=== PATIENT | female | born 1985 | race Caucasian/White ===

== ENCOUNTER 2024-09-22 12:41 | Emergency (ER) | payer OTHER, SELFPAY ==
[2024-09-22 12:42] VITALS: BP 161/95; PULSE 121; RESP 18; TEMP 36.4; O2SAT 100; BMI 44.6
[2024-09-22 16:42] VITALS: BP 148/99; PULSE 98; RESP 18; O2SAT 95
--- NOTE | 2024-09-22 17:06 | EX.ED.VIS.EY ---
HPI History of Present Illness Chief Complaint: Eye Problem Informant: patient Narrative Narrative: Patient is a 39-year-old female who is 2 days postop from elective umbilical hernia repair performed by Dr. Kapoor at [facility]. She had yesterday she started feel little flushed and itchy and it came back today. Today she notes she had bilateral eye redness and she feels that her vision is a little blurry and hard to focus. She does note she did not sleep well last time she that was abnormal. She does wear glasses but does not wear contacts. She is currently in between [employer]. She does note that she has a bitter taste in her mouth. She denies any itchy or dry eyes. She has had a slight cough since before her surgery but denies any recent coughing, vomiting or sneezing. She is on any blood thinners. Denies any fever. PFSH PFSH Home Medications ?Medication ?Instructions ?Recorded ?Last Taken ?Type ferrous sulfate 325 mg (65 mg 1 tab.bulk PO DAILY 10/09/15 12/29/15 History iron) tablet (Iron (ferrous sulfate)) vits,calcium no.78-iron 1 tab PO DAILY 10/09/15 12/29/15 History fumarate-folic acid 29 mg-1 mg tablet (Prenatabs FA) oxycodone 5 mg tablet 5 mg PO Q4H PRN PRN Moderate Pain 01/01/16 Unknown Rx (pain scale 4-5) ##15 peg 400-propylene glycol (PF) 0.4 1 drp EACH EYE Q1H PRN dry eye(s) 09/22/24 Unknown Rx %-0.3 % eye drops in a dropperette #30 ea (Systane (PF)) Allergy/AdvReac Type Severity Reaction Status Date / Time No Known Allergies Allergy Verified 09/22/24 12:42 Social History Smoking Status: Never smoker ROS ROS ED Constitutional Constitutional ED: Denies chills or fever(s) Eyes Eyes: Reports blurry vision and other Details: Redness to bilateral eyes ENT ENT ED: Denies rhinorrhea or sore throat Cardiovascular Cardiovascular: Denies chest pain Respiratory/Chest Respiratory/Chest: Reports cough; Denies dyspnea or sputum Gastrointestinal Gastrointestinal: Denies nausea or vomiting Musculoskeletal Musculoskeletal: Denies arthralgias or myalgias Integumentary Reports other Details: Flushing of cheeks, mildly itchy feeling in the face Neurologic Neurologic: Denies headache(s) or weakness Hematologic/Lymphatic Hematologic/Lymphatic: Denies easy bleeding or easy bruising EXAM Physical Exam Const Vital Signs: 09/22/24 12:42 09/22/24 16:42 Temperature 97.6 F L Temperature Source Oral Pulse Rate 121 H 98 Respiratory Rate 18 18 Blood Pressure 161/95 H 148/99 H Blood Pressure Mean 117 115 Pulse Ox 100 95 Oxygen Delivery Method Room Air Positive well nourished and well developed General Appearance ED: well developed and NAD HEENT HEENT Narrative: Mildly flushed cheeks. Normal oropharynx. atraumatic Nose: external nose normal Eyes Eyes Narrative: EOMI. PERRL. Bilateral subconjunctival hemorrhage present in the bottom part of both eyes (below the eyelids) that tracks from the temporal area and does go slightly towards the outer bottom edge of the iris. No associated hyphema. No conjunctival edema appreciated. No other conjunctival injection present. Normal eyelids. Neck supple Resp normal respiratory effort and clear to auscultation bilaterally Resp Narrative: No wheezing appreciated. Cardio regular rate and regular rhythm GI non-tender Auscultation: normoactive bowel sounds Palpation: soft Neuro oriented x3 Sensorium / Orientation: alert Motor Exam: Negative for general weakness Psych Mood & Affect: Negative for anxious Skin Skin Narrative: Cheeks flushed. No other rash appreciated. No urticaria or hives appreciated. Patient has surgical bandage over her umbilicus with some dried blood in but is not actively bleeding or seeping. Bandages kept in place. MDM MDM MDM Narrative Medical decision making narrative: Patient is evaluated for redness to bilateral eyes. She had surgeries 2 days ago. She has been having some flushing of her cheeks. She is not sure if she is having some type of allergic reaction if she is on oxycodone. She seems to be healing well from her hernia surgery with no acute GI complications. Physical exam of the eye is most consistent with subconjunctival hemorrhage. I do not appreciate hyphema. She is not complain of any pain and lower suspicion for corneal abrasions. Visual acuity mildly diminished. Patient is given referral for ophthalmology and started on lubricating eyedrops. Discussed that the subconjunctival hemorrhages will heal on their own over the next 2 weeks. She is not on any blood thinners. In addition she has been having some chills, mild URI symptoms and flushing and we will test her for influenza. Will contact her with the results if positive. COVID, flu, RSV negative. Discharge Plan Triage Chief Complaint: Eye Problem ED Provider: Josefina Fragoso Dx/Rx/DC Orders Clinical Impression: Subconjunctival hemorrhage of both eyes, Facial flushing Prescriptions: New Systane (PF) 0.4-0.3 % dropperette 1 drp EACH EYE Q1H PRN (Reason: dry eye(s)) Qty: 30 0RF No Action ferrous sulfate [Iron (ferrous sulfate)] 325 MG tablet 1 tab.bulk PO DAILY Patient Comments: anemia vit,[id number] [Prenatabs FA] 1 TABLET tablet 1 tab PO DAILY Patient Comments: vitamin oxycodone 5 MG tablet 5 mg PO Q4H PRN PRN (Reason: Moderate Pain (pain scale 4-5)) Qty: 15 0RF Patient Comments: pain Primary Care Provider: Swetha Dubose Referrals: Danay Daly MD [Med Staff - Active Staff] - Swetha Dubose NP-C [Primary Care Provider] - Activity Restrictions/Additional Instructions: Will contact you if your viral swab was positive today. Please follow-up with ophthalmology. In the meantime use a lubricating eyedrops which I have prescribed. You may take Benadryl as needed for flushing as some people can have a histamine reaction associated with pain medication. Please continue to follow-up with your surgeon as well. Print Language: Setswana Disposition Disposition: Home, Self Care Discharge Date/Time: 09/22/24 18:25
[2024-09-22 17:36] VITALS: TEMP 36.9
[2024-09-22 18:24] VITALS: BP 132/86; PULSE 81; RESP 16; TEMP 36.9; O2SAT 99
== END 2024-09-22 18:25 | disposition home or self-care (01) ==
PROVIDERS: Emergency Provider Emergency Medicine; PCP Nurse Practitioner Family; Visit Provider Emergency Medicine
DX: H11.33 Conjunctival hemorrhage, bilateral (principal); R23.2 Flushing
CPT/HCPCS: 87631; 99283